=== PATIENT | female | born 1960 | race Caucasian/White ===

== ENCOUNTER 2017-11-01 20:50 | Emergency (ER) | payer MEDICARE, MEDICAID ==
--- NOTE | 2017-11-01 20:58 | ER Document Report ---
ED General - General Stated Complaint: POSSIBLE SEIZURE Time Seen by Provider: 11/01/17 20:54 Cannot obtain history due to: Unstable vital signs, Altered mental status Notes: Patient is a 57-year-old female who arrives by EMS after requiring 10 mg of midazolam for termination of status epilepticus. Patient is apparently completely flaccid on the left side of her body and minimally responsive. She arrives via emergency traffic. The patient is obtunded at time of presentation unable to provide any additional history. EMS reports that the patient has apparently had almost an hour of continuous seizures prior to arrival to the hospital. TRAVEL OUTSIDE OF THE [place] IN LAST 30 DAYS: No - Related Data Allergies/Adverse Reactions: amitriptyline [Amitriptyline] Allergy (Verified 11/01/17 23:03) levetiracetam [From Keppra] Allergy (Verified 11/01/17 23:03) ondansetron [From ZOFRAN ODT] Allergy (Verified 11/01/17 23:03) Penicillins Allergy (Verified 11/01/17 23:03) promethazine HCl [From Phenergan] Allergy (Verified 11/01/17 23:03) vancomycin Allergy (Verified 11/01/17 23:03) venlafaxine Allergy (Verified 11/01/17 23:03) Past Medical History - General Information source: Emergency Med Personnel, [facility] Records Cannot obtain history due to: Unstable vital signs, Altered mental status - Social History Smoking Status: Unknown if Ever Smoked Frequency of alcohol use: None Drug Abuse: None Lives with: Spouse/Significant other Family History: Reviewed & Not Pertinent - Past Medical History Cardiac Medical History: Reports: Hx Hypercholesterolemia, Hx Hypertension Neurological Medical History: Reports: Hx Seizures Psychiatric Medical History: Reports: Hx Depression Past Surgical History: Reports: Hx Section, Hx Orthopedic Surgery - left wrist/hand; neck fusion, Hx Thyroid Surgery - Immunizations Hx Diphtheria, Pertussis, Tetanus Vaccination: No - unk Review of Systems - Review of Systems -: Yes ROS unobtainable due to patient's medical condition Physical Exam - Vital signs Vitals: Resp Pulse Ox 22 H 90 L 11/01/17 21:01 11/01/17 21:01 Interpretation: Hypotensive, Tachycardic, Hypoxic Notes: PHYSICAL EXAMINATION: GENERAL: Diaphoretic, ill in appearance HEAD: Atraumatic, normocephalic. EYES: Pupils equal round and reactive to light, sclera anicteric, conjunctiva are normal. ENT: nares patent, oropharynx clear without exudates. Moist mucous membranes. NECK: Normal range of motion, supple without lymphadenopathy LUNGS: Breath sounds clear to auscultation bilaterally and equal. No wheezes rales or rhonchi. HEART: Regular tachycardia without murmurs ABDOMEN: Soft, nontender, normoactive bowel sounds. No guarding, no rebound. No masses appreciated. EXTREMITIES: Normal range of motion, no pitting or edema. No cyanosis. NEUROLOGICAL: Completely flaccid in the left upper and lower extremities without any effort when asked to follow commands. Patient will squeeze my fingers on the right side. Wiggles toes on the right foot. Unable or unwilling to comply with strength testing of the right side of the body. She does not open her eyes or respond to loud voice but does open her eyes to noxious stimuli. PSYCH: Obtunded SKIN: Warm, diaphoretic, normal turgor, no rashes or lesions noted. Course - Re-evaluation Re-evalutation: 11/01/17 20:57 Patient presents with an episode of status epilepticus prior to arrival to the hospital and with termination of her seizure after receiving a total of 10 mg of intramuscular midazolam. On arrival, patient has complete plasticity on the left side of her body although squeezes the hand on the right on command. She does not wake or speak. She is currently protecting her airway. She was emergently taken for a stat CT of the head to evaluate for possible cranial bleed. She is currently saturating 94% on supplemental oxygen and does not require emergent airway protection. Will continue to monitor very closely. She will be loaded with phenytoin. 11/01/17 21:14 Patient does continue to require a nonrebreather mask with a nasopharyngeal airway in the right nostril to maintain saturations above 90%. She does however clamp her mouth shut when I attempt to suction out her airway indicating that she is protecting her airway at this time point. She continues to be flaccid on her left side although her is now at the bedside and reports that this is normal for her after seizures. CT the head has been read by radiology and is read as normal. also clarifies that the nature of her seizure today was 3 separate episodes the first of which was a 45 minute generalized tonic-clonic episode with spontaneous resolution. The patient apparently returned to baseline and then had an additional seizure again lasting 3-4 minutes with a return to baseline thereafter. He states several minutes thereafter she had the more significant seizure that prompted him to contact EMS which lasted at least 20-30 minutes prior to being able to be terminated by EMS using midazolam. I think there is a large component of sedation both from the large dose of midazolam that was required to terminate the seizure as well as patient's postictal state. The does note that they have been under significant amount of stress lately secondary to an ill child and that the patient is compliant with her medications. Will continue to monitor very closely for any potential need for airway intervention. Patient will require hospitalization and normally follows at [facility] for her seizures. 11/01/17 21:42 Patient is becoming more alert, wakes and tells me her name but still is not oriented. She continues to follow specific commands on the right side but is flaccid on the left. No repeat seizure activity. Phenytoin is currently being loaded. She is receiving 1 L of IV fluid and her blood pressure has improved from 90 systolic into the have been able to remove the nasopharyngeal airway as well as the nonrebreather had placed the patient on 3 L by nasal cannula. She is maintaining saturation of 95% at this level of oxygenation. Continue to reassess her at regular intervals 11/01/17 22:02 Troponin mildly elevated likely secondary to demand mediated ischemia from her prolonged period of seizure activity. She continues to become more alert and oriented. Maintaining saturations appropriately on 3 L by nasal cannula. 11/01/17 22:43 I have discussed this case with the chief resident covering for the attending Dr. Wasserman who has accepted that patient for transfer to [facility]. The patient continues to be somnolent but wakes to loud voice, states her name, but continues to be unable to provide additional information. She remains flaccid on the left side, neuro intact on the right. 11/01/17 23:35 Patient continues to be somewhat lethargic but wakes, tells me her name, is able to identify her . Continues to follow commands and the right side remains unable to follow any commands. Transport is inbound. 11/02/17 00:38 Patient has had normalization of her neurologic exam now alert, oriented, at baseline. She has full 5 out of 5 strength both distally and proximally the bilateral upper and lower extremities. She is now conversing normally. No further seizure activity. Transport has arrived for patient transfer. She is stable and appropriate for transfer. EMS will be sent with an additional 6 mg of Versed that can be used in route if patient is to have recurrence of seizures as they do not have adequate supplies on board. - Vital Signs Vital signs: Temp Pulse Resp BP Pulse Ox 98 F 93 18 116/64 99 11/02/17 00:46 11/01/17 23:13 11/02/17 00:30 11/02/17 00:30 11/02/17 00:30 - Laboratory Result Diagrams: 11/01/17 21:20 11/01/17 21:20 Laboratory results interpreted by me: 11/01/17 11/01/17 11/01/17 21:20 21:20 22:29 WBC 12.9 H Seg Neutrophils % 85.9 H Lymphocytes % 7.6 L Absolute Neutrophils 11.1 H Sodium 146.2 H Potassium 3.4 L BUN 22 H Creatinine 1.44 H Est GFR ( Amer) 45 L Est GFR (Non-Af Amer) 38 L Total Bilirubin 0.1 L Urine Protein 100 H Ur Leukocyte Esterase TRACE H Urine Ascorbic Acid 20 H - Diagnostic Test Radiology reviewed: Image reviewed, Reports reviewed Radiology results interpreted by me: 11/01/17 22:44 CT head: No acute intracranial bleed or mass. Chest x-ray: No acute infiltrate or pneumothorax - EKG Interpretation by Me Additional EKG results interpreted by me: 11/01/17 22:44 Sinus tachycardia. Rate 114. No ST elevations or depressions. QTC is mildly prolonged at 502. Critical Care Note - Critical Care Note Total time excluding time spent on procedures (mins): 56 Comments: Critical care time spent obtaining history from patient or surrogate, discussions with consultants, development of treatment plan with patient or surrogate, evaluation of patient's response to treatment, examination of patient , ordering and performing treatments and interventions, ordering and review of laboratory studies, re-evaluation of patient's condition, ordering and review of radiographic studies and review of old charts Discharge - Discharge Clinical Impression: Status epilepticus, Hypoxia, Isak's paralysis Condition: Fair Disposition: [facility] Referrals: HIRAM ESTRADA PA [Primary Care Provider] - Follow up as needed
--- NOTE | 2017-11-01 21:12 | RADIOLOGY REPORT (SQ) ---
EXAM DESCRIPTION: CT HEAD WITHOUT COMPLETED DATE/TIME: 11/01/2017 8:58 pm REASON FOR STUDY: left sided weakness, post seizure COMPARISON: Noncontrast CT head 01/31/2016 TECHNIQUE: Axial images acquired through the brain without intravenous contrast. Images reviewed wi th bone, brain and subdural windows. Images stored on PACS. All CT scanners at this facility use dose modulation, iterative reconstruction, and/or weight based d osing when appropriate to reduce radiation dose to as low as reasonably achievable (ALARA). [facility]: Dose Right [facility]: CareDose [facility]: Dose Right [facility]: Teradose 4D [facility]: Smart [employer] RADIATION DOSE: mGy. LIMITATIONS: None. FINDINGS: VENTRICLES: Normal size and contour. CEREBRUM: No mass effect. No hemorrhage. No midline shift. Normal soto/white matter differentiatio n. No evidence for acute territorial infarction. CEREBELLUM: No mass effect. No hemorrhage. No alteration of density. No evidence for acute infarct ion. EXTRAAXIAL SPACES: No fluid collections. ORBITS AND GLOBE: Symmetrical contour of the globes. CALVARIUM: No depressed skull fracture. PARANASAL SINUSES: No air-fluid level. SOFT TISSUES: No hematoma. IMPRESSION: No acute intracranial hemorrhage or acute territorial infarct. EVIDENCE OF ACUTE STROKE: NO. COMMENT: Quality ID # [id number]: Final reports with documentation of one or more dose reduction techniques (e.g., Automated exposure control, adjustment of the mA and/or kV according to patient size, use of iterative reconstruction technique) TECHNICAL DOCUMENTATION: JOB ID: [id number] 2010 [employer]- All Rights Reserved Reading location - IP/workstation name: [email or web address]
[2017-11-01] MEDS ORDERED: PHENYTOIN SODIUM INJ/PF 250 MG/5 ML SDV IV ONE (21:13)
[2017-11-01] MEDS ORDERED: NORMAL SALINE 1000 ML 1,000 ML IV ONE ×2 (21:13→22:44)
[2017-11-01 21:26] LABS: ABSOLUTE BASOPHILS # (AUTO) 0.1 10^3/uL (0.0-0.2); ABSOLUTE EOSINOPHILS # (AUTO) 0.1 10^3/uL (0.0-0.6); ABSOLUTE MONOCYTES (AUTO) 0.7 10^3/uL (0.1-1.4); ABSOLUTE NEUT (AUTO) 11.1 10^3/uL (1.7-8.2); BASOPHILS % (AUTO) 0.6 % (0-2); EOSINOPHILS % (AUTO) 0.6 % (0-6); HEMATOCRIT 39.7 % (36.0-47.0); HEMOGLOBIN 13.3 g/dL (12.0-15.5); LYMPHOCYTES % (AUTO) 7.6 % (13-45); MEAN CORPUSCULAR HGB CONC 33.6 g/dL (32.0-36.0); MEAN CORPUSCULAR VOLUME 89 fl (80-97); MONOCYTES % (AUTO) 5.3 % (3-13); PLATELET COUNT 278 10^3/uL (150-450); RED BLOOD COUNT 4.45 10^6/uL (3.72-5.28); RED CELL DISTRIBUTION WIDTH 12.8 % (11.5-14.0); SEGMENTED NEUTROPHILS % (AUTO) 85.9 % (42-78); TOTAL CELLS COUNTED % (AUTO) 100 %; WHITE BLOOD COUNT 12.9 10^3/uL (4.0-10.5)
[2017-11-01 21:29] LABS: VENOUS BLOOD HCO3 21.5 mmol/L (20-32); VENOUS BLOOD PH 7.38 (7.30-7.42)
--- NOTE | 2017-11-01 21:30 | RADIOLOGY REPORT (SQ) ---
EXAM DESCRIPTION: CHEST SINGLE VIEW COMPLETED DATE/TIME: 11/01/2017 9:02 pm REASON FOR STUDY: left sided weakness, post seizure COMPARISON: 11/28/2013 EXAM PARAMETERS: NUMBER OF VIEWS: One view. TECHNIQUE: Single frontal radiographic view of the chest acquired. RADIATION DOSE: NA LIMITATIONS: Demographics mismatch FINDINGS: LUNGS AND PLEURA: No opacities, masses or pneumothorax. No pleural effusion. MEDIASTINUM AND HILAR STRUCTURES: No masses. Contour normal. HEART AND VASCULAR STRUCTURES: Heart normal in size. Normal vasculature. BONES: No acute findings. HARDWARE: None in the chest. OTHER: No other significant finding. IMPRESSION: NO ACUTE RADIOGRAPHIC FINDING IN THE CHEST. TECHNICAL DOCUMENTATION: JOB ID: [id number] [employer]- All Rights Reserved Reading location - IP/workstation name: [email or web address]
[2017-11-01 21:42] LABS: ALANINE AMINOTRANSFERASE 23 U/L (9-52); ALKALINE PHOSPHATASE 87 U/L (38-126); ANION GAP 18 (5-19); ASPARTATE AMINO TRANSFERASE 30 U/L (14-36); BILIRUBIN,DIRECT 0.1 mg/dL (0.0-0.4); BILIRUBIN,TOTAL 0.1 mg/dL (0.2-1.3); BLOOD UREA NITROGEN 22 mg/dL (7-20); CARBON DIOXIDE 22 mmol/L (22-30); CHLORIDE 106 mmol/L (98-107); GLUCOSE 103 mg/dL (75-110); POTASSIUM 3.4 mmol/L (3.6-5.0); SODIUM 146.2 mmol/L (137-145); TOTAL PROTEIN 7.8 g/dL (6.3-8.2)
[2017-11-01 23:17] LABS: APPEARANCE,URINE SLIGHTLY-CLOUDY; BILIRUBIN,URINE NEGATIVE (NEGATIVE); COLOR,URINE YELLOW; GLUCOSE, URINE NEGATIVE (NEGATIVE); KETONES,URINE NEGATIVE (NEGATIVE); LEUKOCYTE ESTERASE,URINE TRACE (NEGATIVE); NITRITE,URINE NEGATIVE (NEGATIVE); PROTEIN,URINE 100 mg/dL (NEGATIVE); URINE SPECIFIC GRAVITY 1.019; UROBILINOGEN,URINE NEGATIVE mg/dL (<2.0)
[2017-11-02] MEDS ORDERED: MIDAZOLAM 2 MG/2 ML INJ IV ONE (00:30)
[2017-11-02 00:45] VITALS: BP 116/64
--- NOTE | 2017-11-02 06:02 | EKG REPORT ---
SEVERITY:- ABNORMAL ECG - SINUS TACHYCARDIA CONSIDER INFERIOR INFARCT CONSIDER ANTERIOR INFARCT BORDERLINE PROLONGED QT INTERVAL : Confirmed by: Jeremias Hartman MD 02-Nov-2017 06:02:21
== END 2017-11-02 00:35 | disposition short-term general hospital (02) ==
LOC: ER 20:50
DX: G83.84 Todd's paralysis (postepileptic) (principal); G40.901 Epilepsy, unspecified, not intractable, with status epilepticus; R09.02 Hypoxemia; I10 Essential (primary) hypertension; E78.00 Pure hypercholesterolemia, unspecified; Z88.0 Allergy status to penicillin; Z88.3 Allergy status to other anti-infective agents
CPT/HCPCS: 93005; 99285; 96361; 96374; 36415; 85025; 80053; 80175; 81001; 84484; 82803; 71045; 70450; 93010; J1165; J7030

== ENCOUNTER 2017-12-04 17:39 | Emergency (ER) | payer MEDICARE, MEDICAID ==
--- NOTE | 2017-12-04 18:25 | ER Document Report ---
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 According to the , the patient came into his room because she felt the seizure coming on. She took an oral Ativan dose prior to the seizure, but then had generalized shaking for about 30 seconds that resolved without any other intervention. Patient is back to baseline, but is having some weakness in her left upper and lower extremity, which she says very common for her. Her Lamictal was recently increased by her neurologist at [facility] and she is taking it as prescribed. Patient denies blurry vision, sensory changes, neck pain, abdominal pain, chest pain, shortness of breath or fevers. - Related Data Allergies/Adverse Reactions: amitriptyline [Amitriptyline] Allergy (Verified 11/01/17 23:03) levetiracetam [From Keppra] Allergy (Verified 11/01/17 23:03) ondansetron [From ZOFRAN ODT] Allergy (Verified 11/01/17 23:03) Penicillins Allergy (Verified 11/01/17 23:03) promethazine HCl [From Phenergan] Allergy (Verified 11/01/17 23:03) vancomycin Allergy (Verified 11/01/17 23:03) venlafaxine Allergy (Verified 11/01/17 23:03) Past Medical History - General Information source: Patient - Social History Smoking Status: Unknown if Ever Smoked Family History: Reviewed & Not Pertinent - Past Medical History Cardiac Medical History: Reports: Hx Hypercholesterolemia, Hx Hypertension Neurological Medical History: Reports: Hx Seizures Renal/ Medical History: Denies: Hx Peritoneal Dialysis Psychiatric Medical History: Reports: Hx Depression Past Surgical History: Reports: Hx Abdominal Surgery, Hx Section, Hx Hysterectomy, Hx Orthopedic Surgery - left wrist/hand; neck fusion, Hx Thyroid Surgery - Immunizations Hx Diphtheria, Pertussis, Tetanus Vaccination: No - unk Review of Systems - Review of Systems Notes: REVIEW OF SYSTEMS: CONSTITUTIONAL: -fevers, -chills EENT: -eye pain, -difficulty swallowing, -nasal congestion CARDIOVASCULAR: -chest pain, -syncope. RESPIRATORY: -cough, -SOB GASTROINTESTINAL: -abdominal pain, -nausea, -vomiting, -diarrhea GENITOURINARY: -dysuria, -hematuria MUSCULOSKELETAL: -back pain, -neck pain SKIN: -rash or skin lesions. HEMATOLOGIC: -easy bruising or bleeding. LYMPHATIC: -swollen, enlarged glands. NEUROLOGICAL: +seizure PSYCHIATRIC: -anxiety, -depression. ALL OTHER SYSTEMS REVIEWED AND NEGATIVE. Physical Exam - Vital signs Vitals: Resp Pulse Ox 15 94 12/04/17 17:52 12/04/17 17:52 - Notes Notes: PHYSICAL EXAMINATION: GENERAL: Well-appearing, well-nourished and in no acute distress. HEAD: Atraumatic, normocephalic. EYES: Pupils equal round and reactive to light, extraocular movements intact, sclera anicteric, conjunctiva are normal. ENT: nares patent, oropharynx clear without exudates. Moist mucous membranes. NECK: Normal range of motion, supple without lymphadenopathy LUNGS: Breath sounds clear to auscultation bilaterally and equal. No wheezes rales or rhonchi. HEART: Regular rate and rhythm without murmurs ABDOMEN: Soft, nontender, normoactive bowel sounds. No guarding, no rebound. No masses appreciated. EXTREMITIES: Normal range of motion, no pitting or edema. No cyanosis. NEUROLOGICAL: Cranial nerves grossly intact. Normal speech. Sensation intact. 5 /5 strength in RUE and RLE. 2/5 strength in LUE and 1/5 strength in LLE. PSYCH: Normal mood, normal affect. SKIN: Warm, Dry, normal turgor, no rashes or lesions noted. Course - Re-evaluation Re-evalutation: On arrival to the ER, the patient's mental status is back to baseline. She does have weakness in her left upper extremity left lower extremity, which she says occurs after her seizures and these can take up to a day resolved. She has had multiple CAT scans for similar symptoms and they have not shown a head bleed or stroke. She was diagnosed with Isak's paralysis. Sodium is normal. Lamictal level sent, but this is a send out lab. On discharge, her left-sided weakness greatly improved. Will have her follow-up with her neurologist for further evaluation and treatment. - Vital Signs Vital signs: Temp Pulse Resp BP Pulse Ox 18 105/74 94 12/04/17 21:01 12/04/17 21:00 12/04/17 21:01 - Laboratory Result Diagrams: 12/04/17 19:12 Laboratory results interpreted by me: 12/04/17 19:12 Potassium 3.5 L Chloride 109 H Discharge - Discharge Clinical Impression: Recurrent seizures, Isak's paralysis (postepileptic) Condition: Stable Disposition: HOME, SELF-CARE Additional Instructions: Seizure, Known Epileptic You have had a seizure. Seizures may "break through" in an epileptic due to stress of infection or injury, a change in blood chemistry, or drug and alcohol use. Another common cause is failure to take medication as prescribed. Your doctor has evaluated your situation for the likely cause of this seizure. It is important that you follow his advice concerning any medication changes and follow-up care. Further testing of anti-seizure medication levels in your blood may be necessary. If you have a [place] driver's license, it's important that you DO NOT DRIVE until given permission by your physician. This seizure must be reported to the [place] driver 's license bureau. Call the doctor or return if seizures recur, or if new or unusual symptoms arise -- such as severe headache, confusion, excessive sleepiness, local weakness or numbness, neck stiffness, or fever. Forms: Parent Work Note Referrals: HIRAM ESTRADA PA [Primary Care Provider] - Follow up as needed
[2017-12-04] MEDS: NORMAL SALINE 1000 ML 1,000 ML IV PRN ×2 (19:02→19:03)
[2017-12-04 19:38] LABS: ALANINE AMINOTRANSFERASE 25 U/L (9-52); ALKALINE PHOSPHATASE 79 U/L (38-126); ANION GAP 10 (5-19); ASPARTATE AMINO TRANSFERASE 20 U/L (14-36); BILIRUBIN,DIRECT 0.2 mg/dL (0.0-0.4); BILIRUBIN,TOTAL 0.3 mg/dL (0.2-1.3); BLOOD UREA NITROGEN 15 mg/dL (7-20); CALCIUM 9.4 mg/dL (8.4-10.2); CARBON DIOXIDE 24 mmol/L (22-30); CHLORIDE 109 mmol/L (98-107); GLUCOSE 95 mg/dL (75-110); POTASSIUM 3.5 mmol/L (3.6-5.0); SODIUM 142.6 mmol/L (137-145); TOTAL PROTEIN 6.3 g/dL (6.3-8.2)
[2017-12-04 21:44] VITALS: BP 105/74
== END 2017-12-04 21:56 | disposition home or self-care (01) ==
LOC: ER 17:39
DX: G40.909 Epilepsy, unspecified, not intractable, without status epilepticus (principal); G83.84 Todd's paralysis (postepileptic); M62.81 Muscle weakness (generalized); Z79.899 Other long term (current) drug therapy; I10 Essential (primary) hypertension
CPT/HCPCS: 99284; 96360; 36415; 80053; 80175; J7030

== ENCOUNTER 2018-05-14 19:06 | Emergency (ER) | payer MEDICARE, MEDICAID ==
[2018-05-14] MEDS ORDERED: NORMAL SALINE 1000 ML 1,000 ML IV ONE (19:47)
--- NOTE | 2018-05-14 19:57 | ER Document Report ---
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 Apparently she began having involuntary movements in the left side of her body both upper and lower extremity. This is a typical prodrome for the patient. She did take 1 mg of clonazepam as prescribed by her neurologist when she is having prodromal symptoms. However approximately 10-15 minutes after this initial prodrome, the patient developed a generalized tonic-clonic seizure lasting just over 1 hour per the family. EMS was contacted, administered 5 mg of midazolam intramuscularly with termination of the seizure. The patient arrives by EMS, is quite lethargic, only able to tell me her name and unable to provide additional meaningful history. Her last seizure was apparently in November 2017. Family denies any medication noncompliance, use of alcohol last evening, or any complaints today. TRAVEL OUTSIDE OF THE [place] IN LAST 30 DAYS: No - Related Data Allergies/Adverse Reactions: amitriptyline [Amitriptyline] Allergy (Verified 11/01/17 23:03) levetiracetam [From Keppra] Allergy (Verified 11/01/17 23:03) ondansetron [From ZOFRAN ODT] Allergy (Verified 11/01/17 23:03) Penicillins Allergy (Verified 11/01/17 23:03) promethazine HCl [From Phenergan] Allergy (Verified 11/01/17 23:03) vancomycin Allergy (Verified 11/01/17 23:03) venlafaxine Allergy (Verified 11/01/17 23:03) Past Medical History - General Information source: Relative Cannot obtain history due to: Altered mental status - Social History Smoking Status: Never Smoker Frequency of alcohol use: None Drug Abuse: None Lives with: Spouse/Significant other Family History: Reviewed & Not Pertinent Patient has suicidal ideation: No Patient has homicidal ideation: No - Past Medical History Cardiac Medical History: Reports: Hx Hypercholesterolemia, Hx Hypertension Neurological Medical History: Reports: Hx Seizures Renal/ Medical History: Denies: Hx Peritoneal Dialysis Psychiatric Medical History: Reports: Hx Depression Past Surgical History: Reports: Hx Abdominal Surgery, Hx Section, Hx Hysterectomy, Hx Orthopedic Surgery - left wrist/hand; neck fusion, Hx Thyroid Surgery - Immunizations Hx Diphtheria, Pertussis, Tetanus Vaccination: No - unk Review of Systems - Review of Systems -: Yes ROS unobtainable due to patient's medical condition Physical Exam - Vital signs Vitals: Resp Pulse Ox 19 92 05/14/18 19:59 05/14/18 19:59 Interpretation: Tachycardic Notes: PHYSICAL EXAMINATION: GENERAL: Appears somewhat confused, unwell but in no acute distress HEAD: Atraumatic, normocephalic. EYES: Pupils equal round and reactive to light, extraocular movements intact, sclera anicteric, conjunctiva are normal. ENT: nares patent, oropharynx clear without exudates. Moderately dry mucous membranes. NECK: Normal range of motion, supple without lymphadenopathy LUNGS: Breath sounds clear to auscultation bilaterally and equal. No wheezes rales or rhonchi. HEART: Regular tachycardia without murmurs ABDOMEN: Soft, nontender, normoactive bowel sounds. No guarding, no rebound. No masses appreciated. EXTREMITIES: Normal range of motion, no pitting or edema. No cyanosis. NEUROLOGICAL: Dense left-sided hemiparesis. Follows commands in the right upper and lower extremity. Face symmetric. PSYCH: Somnolent, does wake to loud voice. Oriented to person only SKIN: Warm, Dry, normal turgor, no rashes or lesions noted. Course - Re-evaluation Re-evalutation: 05/14/18 19:51 Presentation of a patient who had an approximately 1 hour generalized tonic- clonic seizure that was terminated with 5 mg of intramuscular midazolam in patient has a known history of seizures. No obvious trigger for today's episode. Patient has been compliant with her medications which include lamotrigine 100 mg twice daily and Zanisonimide 200mg nightly. I know this patient well from 3 previous visits. She does currently have a left-sided Isak' s paralysis which is baseline and her postictal phase. She can state her name, follow commands on the right side which is much improved relative to when I saw her in October. Overall the patient appears much better than when I saw her in October although given the duration of her seizure I have contacted [facility] to request consultation with neurology on-call where she normally follows to ensure that they do not wish to provide any additional medication adjustments or wish to have the patient transferred for further evaluation. I do not believe labs or imaging are immediately indicated at this time. Will continue to monitor the patient until her Isak's paralysis resolves and she is back to a normal mental status. Patient is in guarded condition. 05/14/18 20:48 Patient is now spontaneously and purposefully moving her left upper and lower extremities. She is now alert, oriented to person, place, year, current events. I have briefly discussed this case with the resident on-call at [facility] for neurology Dr. Morse. I am awaiting a call back after she has discussed with her attending. Patient is mentating closer to her normal at this time, speaking more freely but is still clearly confused, does not know the year location yet. She still has a dense left-sided Isak's paralysis. 05/14/18 21:10 I have again discussed this case with Dr. Morse the resident working under Dr. Wasserman who has now accepted the patient to [facility] service and has requested a 20 mg/kg load of phenytoin. The patient is 65 kg, 1300 mg will be administered at the appropriate rate with cycling of the pressure every 10 minutes. They have also asked that levels of Zonergan and lamotrigine be sent. Basic labs will also be sent per their request. Patient continues to become more alert, oriented, moving her left side. 05/15/18 00:46 Patient has received phenytoin infusion without any significant palpitation. She did have pain at the IV infusion site but otherwise tolerated it well. She has received her nighttime doses of Zonegran and lamotrigine. Transport inbound 05/15/18 0150 Patient has been reassessed, mild hypotension resolved after asked the patient to sit up and rechecked the pressure myself at the bedside. Patient is alert, oriented, speaking completely normally. No focal neurologic deficits. Appropriate for transport. - Vital Signs Vital signs: Temp Pulse Resp BP Pulse Ox 98.3 F 95 12 111/72 94 05/15/18 01:47 05/14/18 21:21 05/15/18 01:50 05/15/18 01:50 05/15/18 01:50 - Laboratory Result Diagrams: 05/14/18 20:12 05/14/18 20:12 Laboratory results interpreted by me: 05/14/18 05/14/1805/15/18 20:12 20:12 02:02 WBC 15.9 H Seg Neuts % (Manual) 95 H Lymphocytes % (Manual) 3 L Monocytes % (Manual) 2 L Abs Neuts (Manual) 15.1 H BUN 21 H Est GFR (Non-Af Amer) 54 L Urine Ketones 20 H Critical Care Note - Critical Care Note Total time excluding time spent on procedures (mins): 38 Comments: Critical care time spent obtaining history from patient or surrogate, discussions with consultants, development of treatment plan with patient or surrogate, evaluation of patient's response to treatment, examination of patient , ordering and performing treatments and interventions, ordering and review of laboratory studies, re-evaluation of patient's condition, ordering and review of radiographic studies and review of old charts Discharge - Discharge Clinical Impression: Isak's paralysis, Status epilepticus Condition: Fair Disposition: [facility] Referrals: HIRAM ESTRADA PA [Primary Care Provider] - Follow up as needed
[2018-05-14] MEDS ORDERED: METOCLOPRAMIDE HCL INJ/PF 10 MG/2 ML SDV IV ONE (20:47)
[2018-05-14] MEDS ORDERED: PHENYTOIN SODIUM INJ/PF 250 MG/5 ML SDV IV ONE (21:05)
[2018-05-14 21:24] LABS: HEMATOCRIT 37.7 % (36.0-47.0); HEMOGLOBIN 12.7 g/dL (12.0-15.5); MEAN CORPUSCULAR HEMOGLOBIN 30.2 pg (27.0-33.4); MEAN CORPUSCULAR HGB CONC 33.7 g/dL (32.0-36.0); MEAN CORPUSCULAR VOLUME 90 fl (80-97); PLATELET COUNT 254 10^3/uL (150-450); RED BLOOD COUNT 4.22 10^6/uL (3.72-5.28); WHITE BLOOD COUNT 15.9 10^3/uL (4.0-10.5)
[2018-05-14 21:29] LABS: ANION GAP 12 (5-19); BLOOD UREA NITROGEN 21 mg/dL (7-20); CALCIUM 9.6 mg/dL (8.4-10.2); CARBON DIOXIDE 26 mmol/L (22-30); CHLORIDE 101 mmol/L (98-107); GLUCOSE 108 mg/dL (75-110); POTASSIUM 3.6 mmol/L (3.6-5.0); SODIUM 139.2 mmol/L (137-145)
[2018-05-14 21:41] LABS: ABSOLUTE LYMPHOCYTES# (MANUAL) 0.5 10^3/uL (0.5-4.7); ABSOLUTE MONOCYTES # (MANUAL) 0.3 10^3/uL (0.1-1.4); ABSOLUTE NEUTROPHILS# (MANUAL) 15.1 10^3/uL (1.7-8.2); BASOPHILS % (MANUAL) 0 % (0-2); EOSINOPHILS % (MANUAL) 0 % (0-6); LYMPHOCYTES % (MANUAL) 3 % (13-45); MONOCYTES % (MANUAL) 2 % (3-13); PLATELET COMMENT ADEQUATE; SEGMENTED NEUTROPHILS % (MAN) 95 % (42-78); TOTAL CELLS COUNTED 100
[2018-05-14] MEDS ORDERED: LAMOTRIGINE 100 MG TABLET PO ONE (21:50)
[2018-05-14] MEDS ORDERED: ZONISAMIDE 100 MG CAPSULE PO ONE (21:50)
[2018-05-14] MEDS ORDERED: ZONISAMIDE 100 MG CAPSULE ONE (22:19)
[2018-05-14] MEDS: FENTANYL CITRATE INJ/PF 100 MCG/2 ML AMPUL IV PRN ×2 (22:44→23:46)
[2018-05-15] MEDS: FENTANYL CITRATE INJ/PF 100 MCG/2 ML AMPUL IV PRN ×2 (00:43→01:36)
[2018-05-15 02:16] LABS: APPEARANCE,URINE CLEAR; BILIRUBIN,URINE NEGATIVE (NEGATIVE); COLOR,URINE STRAW; GLUCOSE, URINE NEGATIVE (NEGATIVE); KETONES,URINE 20 mg/dL (NEGATIVE); LEUKOCYTE ESTERASE,URINE NEGATIVE (NEGATIVE); NITRITE,URINE NEGATIVE (NEGATIVE); PROTEIN,URINE NEGATIVE (NEGATIVE); URINE SPECIFIC GRAVITY 1.011; UROBILINOGEN,URINE NEGATIVE mg/dL (<2.0)
[2018-05-15 03:31] VITALS: BP 122/85
== END 2018-05-15 02:05 | disposition short-term general hospital (02) ==
LOC: ER 19:06
DX: G40.901 Epilepsy, unspecified, not intractable, with status epilepticus (principal); G83.84 Todd's paralysis (postepileptic); R41.82 Altered mental status, unspecified; Z79.899 Other long term (current) drug therapy; I10 Essential (primary) hypertension
CPT/HCPCS: 96376; 99291; 96361; 96374; 96375; 36415; 85025; 80203; 80048; 80175; 81001; A9270 ×2; J3010 ×2; J2765; J1165; J7030; J3490

== ENCOUNTER 2020-05-09 18:18 | Emergency (ER) | payer MEDICARE, MEDICAID ==
[2020-05-09 19:27] LABS: ABSOLUTE BASOPHILS # (AUTO) 0.1 10^3/uL (0.0-0.2); ABSOLUTE LYMPHOCYTES (AUTO) 1.7 10^3/uL (0.5-4.7); ABSOLUTE MONOCYTES (AUTO) 0.4 10^3/uL (0.1-1.4); BASOPHILS % (AUTO) 0.8 % (0-2); EOSINOPHILS % (AUTO) 0.4 % (0-6); HEMATOCRIT 36.3 % (36.0-47.0); HEMOGLOBIN 12.6 g/dL (12.0-15.5); LYMPHOCYTES % (AUTO) 23.5 % (13-45); MEAN CORPUSCULAR HEMOGLOBIN 31.2 pg (27.0-33.4); MEAN CORPUSCULAR HGB CONC 34.7 g/dL (32.0-36.0); MEAN CORPUSCULAR VOLUME 90 fl (80-97); MONOCYTES % (AUTO) 5.7 % (3-13); PLATELET COUNT 241 10^3/uL (150-450); RED BLOOD COUNT 4.03 10^6/uL (3.72-5.28); RED CELL DISTRIBUTION WIDTH 12.9 % (11.5-14.0); SEGMENTED NEUTROPHILS % (AUTO) 69.6 % (42-78); TOTAL CELLS COUNTED % (AUTO) 100 %; WHITE BLOOD COUNT 7.2 10^3/uL (4.0-10.5)
--- NOTE | 2020-05-09 19:27 | EKG REPORT ---
SEVERITY:- ABNORMAL ECG - SINUS RHYTHM LEFT AXIS DEVIATION CONSIDER ANTERIOR INFARCT ABNORMAL T, CONSIDER ISCHEMIA, LATERAL LEADS : Confirmed by: Keila Torres MD 09-May-2020 19:26:35
[2020-05-09 19:49] LABS: ALBUMIN 4.8 g/dL (3.5-5.0); ALKALINE PHOSPHATASE 68 U/L (38-126); ANION GAP 12 (5-19); ASPARTATE AMINO TRANSFERASE 29 U/L (14-36); BILIRUBIN,DIRECT 0.2 mg/dL (0.0-0.4); BILIRUBIN,TOTAL 0.3 mg/dL (0.2-1.3); BLOOD UREA NITROGEN 16 mg/dL (7-20); CALCIUM 9.9 mg/dL (8.4-10.2); CARBON DIOXIDE 25 mmol/L (22-30); CHLORIDE 103 mmol/L (98-107); GLUCOSE 89 mg/dL (75-110); POTASSIUM 3.3 mmol/L (3.6-5.0); TOTAL PROTEIN 7.1 g/dL (6.3-8.2)
[2020-05-09 19:50] LABS: ALCOHOL < 10 mg/dL (NONE DETECTED)
[2020-05-09 19:58] LABS: APPEARANCE,URINE CLEAR; BILIRUBIN,URINE NEGATIVE (NEGATIVE); COLOR,URINE STRAW; GLUCOSE, URINE NEGATIVE (NEGATIVE); KETONES,URINE NEGATIVE (NEGATIVE); LEUKOCYTE ESTERASE,URINE NEGATIVE (NEGATIVE); NITRITE,URINE NEGATIVE (NEGATIVE); PROTEIN,URINE NEGATIVE (NEGATIVE); URINE SPECIFIC GRAVITY 1.006; UROBILINOGEN,URINE NEGATIVE mg/dL (<2.0)
[2020-05-09 20:33] LABS: URINE AMPHETAMINES SCREEN NEGATIVE; URINE BARBITURATES SCREEN NEGATIVE; URINE COCAINE SCREEN NEGATIVE; URINE MARIJUANA (THC) SCREEN NEGATIVE; URINE METHADONE SCREEN NEGATIVE; URINE PHENCYCLIDINE SCREEN NEGATIVE
[2020-05-09 20:34] LABS: URINE BENZODIAZEPINES SCREEN UNCONFIRMED POSITIVE
--- NOTE | 2020-05-09 20:46 | ER Document Report ---
ED Seizure - General Chief Complaint: Seizure Stated Complaint: POSSIBLE SEIZURE Time Seen by Provider: 05/09/20 20:26 Primary Care Provider: HIRAM ESTRADA PA [Primary Care Provider] - Follow up as needed Notes: CHIEF COMPLAINT: Seizure tonight HPI: 60-year-old female brought by EMS for evaluation after possible seizure tonight. Patient with an 8 to 10-year history of seizures that are tonic-clonic in nature. states it was atypical tonight because she did not have an aura normally she has an aura. States she had one like this on Thursday but had an aura. Patient follows at [facility] for her seizures. states she has had "every scan under the sun" including EEG, CT, MRI. Patient seizure other than the aura was typical for the types of seizures that she has. She had generalized shaking in the lower extremities tonight. Patient was not incontinent of urine. Patient states she does not specifically recall the seizure. Patient was evaluated by EMS and given Versed because of the shaking of the lower extremities prior to EMS getting there prior to the patient supposedly losing consciousness was able to give her Klonopin p.o. Patient complains of mild headache. Patient denies other specific injuries although she complains of tenderness in the bilateral calf muscles ROS: See HPI - all other systems were reviewed and are otherwise negative Constitutional: no fever Eyes: no drainage, no blurred vision ENT: no runny nose, no sore throat Cardiovascular: no chest pain Resp: no SOB, no cough GI: no vomiting, no diarrhea, no abdominal pain : no dysuria Integumentary: no rash Allergy: no hives Musculoskeletal: + extremity pain or swelling Neurological: no numbness/tingling, + positive generalized weakness MEDICATIONS: I agree with the patient medications as charted by the RN. ALLERGIES: I agree with the allergies as charted by the RN. PAST MEDICAL HISTORY/PAST SURGICAL HISTORY: Reviewed and agree as charted by RN. SOCIAL HISTORY: Reviewed and agree as charted by RN. FAMILY HISTORY: No significant familial comorbid conditions directly related to patient complaint EXAM: Reviewed vital signs as charted by RN. CONSTITUTIONAL: Alert and oriented and responds appropriately to questions. Well-appearing; well-nourished HEAD: Normocephalic; atraumatic EYES: PERRL; Conjunctivae clear, sclerae non-icteric ENT: normal nose; no rhinorrhea; moist mucous membranes; pharynx without lesions noted, no uvula edema or deviation, no tonsillar hypertrophy, phonation normal NECK: Supple without meningismus; non-tender; no cervical lymphadenopathy, no masses CARD: RRR; no murmurs, no clicks, no rubs, no gallops; symmetric distal pulses RESP: Normal chest excursion without splinting or tachypnea; breath sounds clear and equal bilaterally; no wheezes, no rhonchi, no rales, pulse oximetry 99% on room air not hypoxic ABD/GI: Normal bowel sounds; non-distended; soft, non-tender, no rebound, no guarding; no palpable organomegaly or masses. BACK: The back appears normal and is non-tender to palpation, there is no CVA tenderness EXT: Normal ROM in all joints; non-tender to palpation; no cyanosis, no effusions, no edema SKIN: Normal color for age and race; warm; dry; good turgor; no acute lesions noted NEURO: Moves all extremities equally; Motor and sensory function intact. Patient is alert and oriented x3 she is answering all questions appropriately. She is following commands without difficulty. PSYCH: The patient's mood and manner are appropriate. Grooming and personal hygiene are appropriate. MDM: 60-year-old female with history of seizures brought in for evaluation of a seizure tonight. Patient had seen her neurologist at [facility] yesterday who rec ommended to increase the dose of her seizure medication from 3 times a day to 4 times a day did not do that today prior to the seizure onset. She is alert and oriented at this time she has no specific focal complaints. She is answering all questions, has mild headache. Low suspicion for bleed at this time. states she is at her baseline mentation. No indication for imaging at this time. Will discharge home as all labs are normal and have her follow-up with her neurologist tomorrow she will take her fourth dose of her seizure medication tonight when she gets home - Related Data Allergies/Adverse Reactions: amitriptyline [Amitriptyline] Allergy (Verified 11/01/17 23:03) levetiracetam [From Keppra] Allergy (Verified 11/01/17 23:03) ondansetron [From ZOFRAN ODT] Allergy (Verified 11/01/17 23:03) Penicillins Allergy (Verified 11/01/17 23:03) promethazine HCl [From Phenergan] Allergy (Verified 11/01/17 23:03) vancomycin Allergy (Verified 11/01/17 23:03) venlafaxine Allergy (Verified 11/01/17 23:03) Past Medical History - Social History Smoking Status: Unknown if Ever Smoked Family History: Reviewed & Not Pertinent - Past Medical History Cardiac Medical History: Reports: Hx Hypercholesterolemia, Hx Hypertension Neurological Medical History: Reports: Hx Seizures Renal/ Medical History: Denies: Hx Peritoneal Dialysis Psychiatric Medical History: Reports: Hx Depression Past Surgical History: Reports: Hx Abdominal Surgery, Hx Section, Hx Hysterectomy, Hx Orthopedic Surgery - left wrist/hand; neck fusion, Hx Thyroid Surgery - Immunizations Hx Diphtheria, Pertussis, Tetanus Vaccination: No - unk Physical Exam - Vital signs Vitals: Resp Pulse Ox 14 95 05/09/20 18:36 05/09/20 18:36 Course - Vital Signs Vital signs: Temp Pulse Resp BP Pulse Ox 17 128/88 H 93 05/09/20 20:00 05/09/20 19:01 05/09/20 20:00 - Laboratory Result Diagrams: 05/09/20 18:35 05/09/20 18:35 Laboratory results interpreted by me: 05/09/20 18:35 Potassium 3.3 L Est GFR (MDRD) Non-Af 53 L Discharge - Discharge Clinical Impression: Seizure Condition: Stable Disposition: HOME, SELF-CARE Additional Instructions: Take the extra dose of your seizure medication when you return home tonight. Follow-up with your neurologist at [facility] by phone tomorrow to discuss your seizure activity today. Return for any concerns. Your lab work today did not show acute emergent abnormalities Referrals: HIRAM ESTRADA PA [Primary Care Provider] - Follow up as needed
[2020-05-09 21:46] VITALS: BP 111/79
== END 2020-05-09 21:48 | disposition home or self-care (01) ==
LOC: ER 18:18
DX: R56.9 Unspecified convulsions (principal); E78.00 Pure hypercholesterolemia, unspecified; I10 Essential (primary) hypertension; Z98.1 Arthrodesis status; Z88.0 Allergy status to penicillin; Z88.3 Allergy status to other anti-infective agents
CPT/HCPCS: 36415; 80053; 80307; 81001; 82962; 83735; 85025; 93005; 93010; 99284